=== PATIENT | male | born 1955 | race Two or more races ===

== ENCOUNTER 2023-08-07 17:51 | Emergency (ER) | payer OTHER ==
[~2023-08-07] VITALS: Ht 182.9 cm; Wt 72.6 kg
[~2023-08-07 17:51] MED LIST: KETO10TA2 PO; NAPR500T14 PO; ORPH100T PO
== END 2023-08-07 21:35 | disposition home or self-care (01) ==
LOC: ER 17:51
DX: H11.31 Conjunctival hemorrhage, right eye (principal)